=== PATIENT | female | born 1960 | race Two or more races ===

== ENCOUNTER 2017-02-16 11:25 | Day surgery (SDC) | payer OTHER ==
[~2017-02-16] VITALS: Ht 162.6 cm; Wt 72.6 kg
[2017-02-16 13:26] VITALS: Ht 162.6 cm; Wt 72.6 kg
[2017-02-16] MEDS ORDERED: LIDOCAINE 2% (SDV) 5 ML INJ ONE (13:38)
[2017-02-16] MEDS ORDERED: PROPOFOL 40 ML ONE (13:38)
[2017-02-16 13:45] VITALS: BP 123/74; PULSE 60; RESP 16
[2017-02-16 15:36] VITALS: BP 155/71; PULSE 59; RESP 16
--- NOTE | 2017-02-17 06:00 | GILP ---
DATE OF PROCEDURE: 02/16/2017 PROCEDURE: Colonoscopy with polyp ablation. BRIEF HISTORY AND INDICATIONS: The patient is being evaluated for colorectal cancer screening. PREMEDICATION: Monitored anesthesia care by anesthesiologist. SURGEON: Antonio Hernandez MD INSTRUMENT USED: Olympus colonoscope. PREPARATION: Adequate. TECHNIQUE: After informed consent, with the patient/relatives understanding the procedure, its indic ations potential risks and complications, including but not limited to: allergic reaction, bleeding, perforation, infection, missed lesions and after all pertinent questions were answered to the patie nt's satisfaction, the patient/relatives signed the witnessed informed consent. Following this, premedication was administered slowly IV push by under careful cardiovascular and re spiratory monitoring with pulse oximetry, automatic blood pressure and night monitor. Once the sedativ e effect was achieved, the patient was placed in the left lateral decubitus position, digital rectal examination was performed. The colonoscope was then introduced and advanced under visual control th roughout all segments of the colon including: the rectum, sigmoid, descending colon, splenic flexure , transverse colon, hepatic flexure, ascending colon and finally reaching the cecum which was clearl y identified by transillumination, finger indentation and the ileocecal valve. Careful examination o f the mucosa of the lower gastrointestinal tract both on insertion as well as withdrawal of the inst rument disclosed the following findings: Rectal Examination: No evidence of perirectal disease, no masses. Colonic Mucosa: The colonic mucosa is remarkable for a 3 mm polyp in the proximal ascending colon w hich was ablated with biopsy forceps. There is mild melanosis coli throughout the colon. The ileocecal valve was clearly identified and appears unremarkable. . The instrument was then withdrawn, reexamining the mucosa in detail. No additional abnormalities we re noted with the exception of large internal hemorrhoids. The patient tolerated the procedure well and was transferred out of the [facility]oscopy Suite awake and in good condition to continue recovery under observation. IMPRESSION: 1. A 3 mm polyp, proximal ascending colon, ablated. 2. Melanosis coli, mild. 3. Large internal hemorrhoids. PLAN: Pathology will be reviewed as soon as available. Surveillance colonoscopy in 5 years is birdie mmended. Dictated By: ANTONIO HERNANDEZ MS/RHONA Conf#: [id number] DID#: [id number]
== END 2017-02-16 16:22 | disposition home or self-care (01) ==
LOC: GIL 11:25
PROVIDERS: ATTEND Internal Medicine Gastroenterology
DX: Z12.11 Encounter for screening for malignant neoplasm of colon (principal); D12.2 Benign neoplasm of ascending colon; K64.8 Other hemorrhoids; K63.89 Other specified diseases of intestine
CPT/HCPCS: 45380; 88305; Z7610